=== PATIENT | female | born 1950 | race Asian ===

== ENCOUNTER → 2016-08-30 | Outpatient (CLI) | payer MEDICARE, OTHER ==
--- NOTE | 2016-08-30 11:14 | RADRPT ---
EXAM DATE/TIME: 08/30/2016 00:00 [facility] COMPARISON: No previous studies available for comparison. INDICATIONS : Dysphagia. FLUORO TIME: 2.1 minutes IMAGE COUNT: 0 CONTRAST: Dose as prescribed by speech pathologist. MEDICAL HISTORY : None. SURGICAL HISTORY : None. ENCOUNTER: Initial ACUITY: >1 year PAIN SCORE: 0/10 LOCATION: Esophagus. FINDINGS: A modified barium swallow was performed with speech pathology. Patient was given a variety of liquids to swallow. Thin barium, applesauce consistency, and solid state barium was utilized. No penetration or aspiratio n observed. A normal bolus observed. No premature spillage or pooling. For a full detailed report, see report by the speech pathologist. CONCLUSION: Unremarkable exam. Maksim Ibrahim Jr., MD on August 30, 2016 at 11:07 Board Certified Radiologist. This report was verified electronically.
== END ==
LOC: HRAD 10:38
DX: R13.12 Dysphagia, oropharyngeal phase (principal)
CPT/HCPCS: 74230; 92611; G8996; G8997; G8998

== ENCOUNTER → 2017-08-16 | Outpatient (CLI) | payer MEDICARE, OTHER ==
[~2017-08-16] MED LIST: CEFU1TAB18 PO; CLAR10CA3 PO; DULE100A INH; FLUT1SPR5 EACH NARE; LIPI10TA PO; LISI10TA3 PO; dulara INH
--- NOTE | 2017-08-23 10:31 | RSPPFT ---
DATE OF PROCEDURE: 08/16/17 COMMENTS: Spirometry with FVC of 2.0, FEV1 of 1.5 and FEV1/FVC ratio at 74%. A non-significant response to acutely inhaled bronchodilator noted. Room air arterial blood gases show pH of 7.44, PCO2 of 39, PO2 of 83. Slow vital capacity is 64% of predicted. TLC is 77%. Diffusion capacity is 80% and normal when corrected for lung volumes. IMPRESSION: 1. Moderately severe airways obstruction. 2. Non-significant response to inhaled bronchodilator. 3. Adequate oxygenation and alveolar ventilation. 4. Mild airways restriction. 5. Mild reduction in diffusion capacity.
== END ==
LOC: PHRSP 08:26
PROVIDERS: ATTEND Internal Medicine Sleep Medicine
DX: R06.89 Other abnormalities of breathing (principal)
CPT/HCPCS: 36600; 82805; 94060; 94726; 94729

== ENCOUNTER 2017-08-19 13:29 | Emergency (ER) | payer MEDICARE, OTHER ==
[~2017-08-19] VITALS: Ht 167.6 cm; Wt 72.0 kg
[2017-08-19 13:36] VITALS: BP 145/65; PULSE 101; RESP 17; TEMP 97.9; O2SAT 98
[2017-08-19 16:37] LABS: BASOPHIL # 0.1 TH/MM3 (0-0.2); BASOPHIL % 0.9 % (0.0-2.0); EOSINOPHIL # 0.6 TH/MM3 (0-0.4); EOSINOPHIL % 10.3 % (0.0-4.0); HEMATOCRIT 40.2 % (35.0-46.0); HEMOGLOBIN 13.5 GM/DL (11.6-15.3); LYMPHOCYTE # 2.3 TH/MM3 (1.0-4.8); MEAN CELL VOLUME 90.7 FL (80.0-100.0); MEAN CORPUSCULAR HEMOGLOBIN 30.4 PG (27.0-34.0); MEAN CORPUSCULAR HGB CONC 33.5 % (32.0-36.0); MONO % 19.3 % (0.0-8.0); MONOCYTE # 1.2 TH/MM3 (0-0.9); NEUT % 32.5 % (16.0-70.0); PLATELET COUNT 180 TH/MM3 (150-450); RED BLOOD COUNT 4.44 MIL/MM3 (4.00-5.30); WHITE BLOOD COUNT 6.1 TH/MM3 (4.0-11.0)
[2017-08-19 17:10] LABS: ALT (GPT) 34 U/L (10-53)
[2017-08-19 17:13] LABS: ALKALINE PHOSPHATASE 44 U/L (45-117); TOTAL BILIRUBIN ADULT 0.4 MG/DL (0.2-1.0); TOTAL PROTEIN 8.2 GM/DL (6.4-8.2)
--- NOTE | 2017-08-19 17:19 | PD ---
HPI Chief Complaint: Cold / Flu Symptoms Time Seen by Provider: 15:51 Travel History International Travel<30 days: No Contact w/Intl Traveler<30days: No Traveled to known affect area: No History of Present Illness HPI Patient is a 67-year-old female who comes in complaining of cough. She says this has been going on for the past 6 months. 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 She says she was told that if she felt feverish or as if the infection was getting worse that she should come in. She says that last night she felt like she might have a fever, but she did not take her temperature. She has pulmonary function tests scheduled for next week as well as an echocardiogram. She denies any chest pain. She says she feels short of breath with coughing. She denies any leg swelling. Severity is mild to moderate. PFSH Past Medical History COPD: No Hypertension: Yes Social History Tobacco Use: No Allergies-Medications (Allergen,Severity, Reaction): Coded Allergies: No Known Allergies (Unverified , 08/19/17) Review of Systems Except as stated in HPI: all other systems reviewed are Neg General / Constitutional: Positive: Fever, Chills HENT: No: Headaches, Lightheadedness Respiratory: Positive: Cough Gastrointestinal: No: Nausea, Vomiting Musculoskeletal: No: Myalgias, Edema Skin: No Rash, No Change in Pigmentation Neurologic: No: Weakness, Dizziness Physical Exam Narrative GENERAL: Awake and alert, in no acute distress. SKIN: Focused skin assessment warm/dry. HEAD: Atraumatic. Normocephalic. EYES: Pupils equal and round. No scleral icterus. ENT: Mucous membranes pink and moist. NECK: Trachea midline. No JVD. CARDIOVASCULAR: Regular rate and rhythm. No murmur appreciated. RESPIRATORY: No accessory muscle use. Crackles in the right lung base. Breath sounds equal bilaterally. GASTROINTESTINAL: Abdomen soft, non-tender, nondistended. Hepatic and splenic margins not palpable. MUSCULOSKELETAL: No obvious deformities. No clubbing. No cyanosis. No edema. NEUROLOGICAL: Awake and alert. No obvious cranial nerve deficits. Motor grossly within normal limits. Normal speech. PSYCHIATRIC: Appropriate mood and affect; insight and judgment normal. Data Data Last Documented VS Vital Signs Date Time Temp Pulse Resp B/P (MAP) Pulse Ox O2 Delivery O2 Flow Rate FiO2 08/19/17 15:45 16 99 Room Air 08/19/17 13:36 97.9 101 145/65 (91) Orders Orders Iv Access Insert/Monitor (08/19/17 16:16) Complete Blood Count With Diff (08/19/17 16:16) Comprehensive Metabolic Panel (08/19/17 16:16) B-Type Natriuretic Peptide (08/19/17 17:44) Chest, Pa & Lat (08/19/17 ) Ed Discharge Order (08/19/17 18:58) Labs Laboratory Tests Test 08/19/17 16:25 08/19/17 16:28 White Blood Count 6.1 TH/MM3 Red Blood Count 4.44 MIL/MM3 Hemoglobin 13.5 GM/DL Hematocrit 40.2 % Mean Corpuscular Volume 90.7 FL Mean Corpuscular Hemoglobin 30.4 PG Mean Corpuscular Hemoglobin Concent 33.5 % Red Cell Distribution Width 14.0 % Platelet Count 180 TH/MM3 Mean Platelet Volume 8.0 FL Neutrophils (%) (Auto) 32.5 % Lymphocytes (%) (Auto) 37.0 % Monocytes (%) (Auto) 19.3 % Eosinophils (%) (Auto) 10.3 % Basophils (%) (Auto) 0.9 % Neutrophils # (Auto) 2.0 TH/MM3 Lymphocytes # (Auto) 2.3 TH/MM3 Monocytes # (Auto) 1.2 TH/MM3 Eosinophils # (Auto) 0.6 TH/MM3 Basophils # (Auto) 0.1 TH/MM3 CBC Comment DIFF FINAL Differential Comment Blood Urea Nitrogen 13 MG/DL Creatinine 0.96 MG/DL Random Glucose 92 MG/DL Total Protein 8.2 GM/DL Albumin 3.7 GM/DL Calcium Level 8.9 MG/DL Alkaline Phosphatase 44 U/L Aspartate Amino Transf (AST/SGOT) 42 U/L Alanine Aminotransferase (ALT/SGPT) 34 U/L Total Bilirubin 0.4 MG/DL Sodium Level 140 MEQ/L Potassium Level 4.8 MEQ/L Chloride Level 108 MEQ/L Carbon Dioxide Level 26.0 MEQ/L Anion Gap 6 MEQ/L Estimat Glomerular Filtration Rate 58 ML/MIN B-Type Natriuretic Peptide 9 PG/ML MDM Medical Decision Making Medical Screen Exam Complete: Yes Emergency Medical Condition: Yes Medical Record Reviewed: Yes Differential Diagnosis pneumonia vs CHF vs chronic bronchitis Narrative Course Patient is a 67 year old female who comes in complaining of cough for 6 months. Exam shows crackles at the right lung base. IV established, labs sent. CXR performed. Patient signed out to Dr. Wolf to follow up testing and disposition appropriately. Diagnosis Primary Impression: Cough Merle Marks MD Aug 19, 2017 17:19
[2017-08-19 17:26] LABS: ALBUMIN 3.7 GM/DL (3.4-5.0); AST (GOT) 42 U/L (15-37); BLOOD UREA NITROGEN 13 MG/DL (7-18); CALCIUM 8.9 MG/DL (8.5-10.1); CHLORIDE 108 MEQ/L (98-107); CREATININE 0.96 MG/DL (0.50-1.00); GLOMERULAR FILTRATION RATE 58 ML/MIN (>89); GLUCOSE,RANDOM 92 MG/DL (74-106); SODIUM (NA) 140 MEQ/L (136-145)
--- NOTE | 2017-08-19 18:12 | RADRPT ---
EXAM DATE/TIME: 08/19/2017 17:37 [facility] COMPARISON: No previous studies available for comparison. INDICATIONS : Cough. MEDICAL HISTORY : None. SURGICAL HISTORY : None. ENCOUNTER: Initial ACUITY: 4 - 6 days PAIN SCORE: 0/10 LOCATION: Bilateral chest FINDINGS: AP and lateral views of the chest demonstrate the lungs to be symmetrically hyperinflated with no acu te infiltrate or effusion. Heart size is normal. Osseous structures are intact. CONCLUSION: Hyperinflation with no acute cardiopulmonary process. Sebastián Zamora MD on August 19, 2017 at 18:09 Board Certified Radiologist. This report was verified electronically.
--- NOTE | 2017-08-19 18:19 | PD ---
Physical Exam Date Seen by Provider: Aug 19, 2017 Time Seen by Provider: 18:57 Narrative 67-year-old female came to the emergency room with history of cough. She was seen by the previous ER physician. Please refer to her history and physical for further details. Signout was to follow-up on the chemistry in the BNP. All the lab test results are back and within acceptable limits. Chest x-ray is unremarkable as per the radiologist. I will discharge her home. Data Data Last Documented VS Vital Signs Date Time Temp Pulse Resp B/P (MAP) Pulse Ox O2 Delivery O2 Flow Rate FiO2 08/19/17 15:45 16 99 Room Air 08/19/17 13:36 97.9 101 145/65 (91) Orders Orders Iv Access Insert/Monitor (08/19/17 16:16) Complete Blood Count With Diff (08/19/17 16:16) Comprehensive Metabolic Panel (08/19/17 16:16) B-Type Natriuretic Peptide (08/19/17 17:44) Chest, Pa & Lat (08/19/17 ) Ed Discharge Order (08/19/17 18:58) Labs Laboratory Tests Test 08/19/17 16:25 08/19/17 16:28 White Blood Count 6.1 TH/MM3 Red Blood Count 4.44 MIL/MM3 Hemoglobin 13.5 GM/DL Hematocrit 40.2 % Mean Corpuscular Volume 90.7 FL Mean Corpuscular Hemoglobin 30.4 PG Mean Corpuscular Hemoglobin Concent 33.5 % Red Cell Distribution Width 14.0 % Platelet Count 180 TH/MM3 Mean Platelet Volume 8.0 FL Neutrophils (%) (Auto) 32.5 % Lymphocytes (%) (Auto) 37.0 % Monocytes (%) (Auto) 19.3 % Eosinophils (%) (Auto) 10.3 % Basophils (%) (Auto) 0.9 % Neutrophils # (Auto) 2.0 TH/MM3 Lymphocytes # (Auto) 2.3 TH/MM3 Monocytes # (Auto) 1.2 TH/MM3 Eosinophils # (Auto) 0.6 TH/MM3 Basophils # (Auto) 0.1 TH/MM3 CBC Comment DIFF FINAL Differential Comment Blood Urea Nitrogen 13 MG/DL Creatinine 0.96 MG/DL Random Glucose 92 MG/DL Total Protein 8.2 GM/DL Albumin 3.7 GM/DL Calcium Level 8.9 MG/DL Alkaline Phosphatase 44 U/L Aspartate Amino Transf (AST/SGOT) 42 U/L Alanine Aminotransferase (ALT/SGPT) 34 U/L Total Bilirubin 0.4 MG/DL Sodium Level 140 MEQ/L Potassium Level 4.8 MEQ/L Chloride Level 108 MEQ/L Carbon Dioxide Level 26.0 MEQ/L Anion Gap 6 MEQ/L Estimat Glomerular Filtration Rate 58 ML/MIN B-Type Natriuretic Peptide 9 PG/ML MDM Supervised Visit with FELIBERTO: No Diagnosis Primary Impression: Cough Additional Instruction: Please follow-up with your scheme technician. Return to the ER if condition worsens any other new concerns. Med/Other Pt SpecificInfo: No Change to Meds Disposition: 01 DISCHARGE HOME Condition: Stable Lisbet Wolf MD Aug 19, 2017 18:19
== END 2017-08-19 19:28 | disposition home or self-care (01) ==
LOC: NEPD 13:29
DX: R05 Cough (principal); R06.02 Shortness of breath; R09.89 Other specified symptoms and signs involving the circulatory and respiratory systems; I10 Essential (primary) hypertension
CPT/HCPCS: 71046; 80053; 83880; 85025; 99284

== ENCOUNTER 2017-08-25 06:26 | Day surgery (SDC) | payer MEDICARE, OTHER ==
[~2017-08-25] VITALS: Ht 167.6 cm; Wt 70.0 kg
[2017-08-25] MEDS ORDERED: POVIDONE IODINE 5% (ANTISEPSIS KIT) 4 APPLICATIONS EACH NARE PRN (07:15)
[2017-08-25] MEDS ORDERED: METOPROLOL TARTRATE 25 MG TAB PO PRN (07:15)
[2017-08-25] MEDS ORDERED: LACTATED RINGER'S 1000 ML IV PRN (07:15)
[2017-08-25] MEDS ORDERED: CHLORHEXIDINE GLUCONATE 2 % 1 PACK (2 CLOTHS) TOPICAL PRN (07:15)
[2017-08-25] MEDS ORDERED: SODIUM CHLORID 0.9% 500 ML IV PRN (07:15)
[2017-08-25] MEDS ORDERED: SODIUM CHLOR 0.45% 1000 ML INJ 1,000 ML IV SCH (07:15)
[2017-08-25] MEDS ORDERED: CLAR10CA3 PO (07:17)
[2017-08-25] MEDS ORDERED: LIPI10TA PO (07:17)
[2017-08-25] MEDS ORDERED: FLUT1SPR5 EACH NARE (07:17)
[2017-08-25] MEDS ORDERED: dulara INH (07:17)
[2017-08-25] MEDS ORDERED: LISI10TA3 PO (07:17)
[2017-08-25] MEDS ORDERED: CEFU1TAB18 PO (07:17)
[2017-08-25 07:50] VITALS: BP 146/74; PULSE 81; RESP 18; O2SAT 97
[2017-08-25 07:50] LABS: PROTHROMBIN TIME - PATIENT 10.3 SEC (9.8-11.6)
[2017-08-25] MEDS ORDERED: RESP: ALBUTEROL 2.5 MG/3 ML NEB (SCH) ONE (08:35)
[2017-08-25] MEDS ORDERED: DO NOT ADM ANY ANTICOAGULANT DRUGS PRN (08:45)
[2017-08-25 09:00] VITALS: BP 124/63; PULSE 79; RESP 18; O2SAT 97
[2017-08-25 09:10] VITALS: TEMP 98.1
[2017-08-25 09:35] VITALS: BP 116/71; PULSE 79; RESP 18; O2SAT 96
--- NOTE | 2017-08-25 09:52 | MR ---
cc: Georgie Jacques MD DATE: 08/25/2017 PROCEDURE PERFORMED: Fiberoptic bronchoscopy. PROCEDURE NOTE: Fiberoptic bronchoscopy was performed via LMA. Vocal cord visualized, appeared intact. Trachea mildly hyperemic, lanre sharp. The right main stem bronchus, right upper, middle and lower lobes, left main bronchus, left upper and lower lobes inspected. No obstructive pathology or mass lesion seen. Diffusely severe hyperemia throughout the tracheobronchial tree and thick mucus plugs were all removed. Washings from both sides of the tracheobronchial tree obtained and sent for routine TB, fungal cultures, as well as cytological exam. Cytologic brush biopsy obtained for cytological exam. Procedure well tolerated. The patient was transferred to the recovery room in stable condition. IMPRESSION: 1. Moderate to severe tracheobronchitis. 2. No active bleeding. 3. No endobronchial obstruction or mass lesion. 4. Procedure well tolerated. 5. The patient transferred to recovery in stable condition. Georgie Jacques MD WWW/DL , 09:42 AM , 09:51 AM
[2017-08-25] MEDS ORDERED: MIDAZOLAM HCL 2 MG/2 ML VIAL ONE (12:13)
--- NOTE | 2017-08-25 13:41 | EKG ---
Date Performed: 08/25/2017 Time Performed: 07:39:45 PTAGE: 67 years EKG: Sinus rhythm POSSIBLE ANTERIOR MYOCARDIAL INFARCTION , OF INDETERMINATE AGE ABNORMAL ECG NO PREVIOUS TRACING DOCTOR: Sha Freeman Interpretating Date/Time 08/25/2017 13:37:21
[2017-08-26] MEDS ORDERED: DULE100A INH (10:25)
== END 2017-08-25 10:15 | disposition home or self-care (01) ==
LOC: HRIP 06:26 → HROP 06:26
PROVIDERS: ATTEND Internal Medicine Sleep Medicine
DX: J40 Bronchitis, not specified as acute or chronic (principal); I10 Essential (primary) hypertension; E11.9 Type 2 diabetes mellitus without complications
CPT/HCPCS: 00520; 31623; 85610; 85730; 87015; 87070; 87102; 87116; 87205; 87206; 88112; 88305; 93005; J2250; J3010; J7613